=== PATIENT | female | born 1995 | race African-American/Black ===

== ENCOUNTER 2024-09-13 13:01 | Observation (INO) ==
[2024-09-13] MEDS ORDERED: 0.9 % SODIUM CHLORIDE 1000 ML 1,000 ML IV ONE (13:18)
[2024-09-13] MEDS ORDERED: CEFTRIAXONE SODIUM 2 GM VIAL ONE (13:19)
[2024-09-13] MEDS ORDERED: 0.9 % SODIUM CHLORIDE MB+ 100 ML IV ONE (13:19)
[2024-09-13] MEDS: KETOROLAC 30 MG/ML INJ VIAL IVP ONE (13:21)
[2024-09-13] MEDS: 0.9 % SODIUM CHLORIDE 1000 ML 1,000 ML IV ONE (13:22)
[2024-09-13] MEDS: CEFTRIAXONE SODIUM 1 GM in 0.9 % SODIUM CHLORIDE 100ML 100 ML IV SCH (13:23)
[2024-09-13 13:25] LABS: Basophils #(Absolute) Auto 0.1 (0.0-0.1); Eosinophils#(Absolute)Auto 0.1 (0.0-0.2); Monocytes #(Absolute)- Auto 1.2 (1.1-3.1)
[2024-09-13 13:26] LABS: Basophils%(Percent) Auto 0.5 (0.1-0.85); Eosinophils%(Percent) Auto 0.2 % (0.4-2.8); Granulocytes % - Auto 87.8 % (47.8-71.3); Granulocytes#(Absolute)- Auto 21.9 (2.3-6.0); Hematocrit 46.4 % (35.9-46.7); Mean Corpuscular Volume 85.4 fl (81.0-93.7); Monocytes %(Percent)- Auto 4.7 % (3.6-9.8); Platelet Count 317 K/uL (152-353)
--- NOTE | 2024-09-13 13:27 | Emergency Department Note ---
HPI - Dental/Oral General Chief complaint: Dental/Oral Stated complaint: SORE THROAT Source: patient Mode of arrival: walk-in Limitations: no limitations Related Data Allergies Allergy/AdvReac Type Severity Reaction Status Date / Time No Known Drug Allergies Allergy Verified 09/13/24 13:16 [facility] Medical History (Updated 09/13/24 @ 13:17 by Rosa Davison RN) Patient denies medical problems Social History Smoking status: current every day smoker Within the past year, how often did you have a drink containing alcohol: monthly or less Within the past year, how many standard drinks containing alcohol did you have on a typical day: 1 or 2 Within the past year, how often did you have six or more drinks on one occasion: never Total score: 0 Score interpretation: A score less than 3 is consistent with normal alcohol consumption. Exam Constitutional: Vital Signs - 24 hr 09/13/24 13:10 Temperature 99.6 F Pulse Rate 120 H Respiratory Rate 16 Blood Pressure 178/122 Pulse Oximetry 98 Oxygen Delivery Me thod Room Air Course Vital Signs Vital signs: Vital Signs Temperature 99.6 F 09/13/24 13:10 Pulse Rate 120 H 09/13/24 13:10 Respiratory Rate 16 09/13/24 13:10 Blood Pressure 178/122 09/13/24 13:10 Pulse Oximetry 98 09/13/24 13:10 Oxygen Delivery Method Room Air 09/13/24 13:10 Temperature 99.6 F 09/13/24 13:10 Pulse Rate 120 H 09/13/24 13:10 Respiratory Rate 16 09/13/24 13:10 Blood Pressure 178/122 09/13/24 13:10 Pulse Oximetry 98 09/13/24 13:10 Oxygen Delivery Method Room Air 09/13/24 13:10 MDM - Dental/Oral MDM Narrative Medical decision making narrative: Patient difficulty for the last 24 hours fever brother has had strep which she seen appear couple hours ago mom is laying on the couch sick at home with the same symptoms Strep pharyngitis, viral pharyngitis, shingles, sinusitis, rhinitis Differential Diagnosis Differential diagnosis: Likely dental caries, toothache, dental abscess, fracture of tooth, aphthous ulcer and other (Strep pharyngitis, viral pharyngitis, shingles, sinusitis, rhinitis) Medical Records Attestation: I reviewed the patient's medical records. Lab Data Attestation: I reviewed the patient's lab results. Labs: Lab Results 09/13/24 Range/Units 13:15 WBC 25.0 H* (4.3-9.3) K/uL RBC 5.4 (4.00-5.50) M/uL Hgb 15.1 (12.5-15.8) gm/dL Hct 46.4 (35.9-46.7) % MCV 85.4 (81.0-93.7) fl MCH 27.9 (27.6-32.2) pg MCHC 32.6 L (33.1-35.3) g/dl RDW 15.3 H (11.4-14.2) % Plt Count 317 (152-353) K/uL MPV 8.1 (6.9-10.8) fl Gran % 87.8 H (47.8-71.3) % Lymph % (Auto) 6.8 L (20.0-43.0) % [place] % (Auto) 4.7 (3.6-9.8) % Eos % (Auto) 0.2 L (0.4-2.8) % Baso % (Auto) 0.5 (0.1-0.85) Lymph # (Auto) 1.7 (1.1-3.1) [place] # (Auto) 1.2 (1.1-3.1) Eos # (Auto) 0.1 (0.0-0.2) Baso # (Auto) 0.1 (0.0-0.1) Absolute Gran (auto) 21.9 H (2.3-6.0) Sodium 139 (136-145) mmol/L Potassium 3.2 L (3.6-5.2) mmol/L Chloride 103.0 (98-107) mmol/L Carbon Dioxide 22 (21-32) mmol/L Anion Gap 14.0 (4-14) mEq/L BUN 6 L (7-18) mg/dL Creatinine 0.9 (0.6-1.3) mg/dL Estimated GFR 89.3 (>59.9) Glucose 132 H (70-110) mg/dL Calcium 8.5 (8.5-10.1) mg/dL Total Bilirubin 0.30 (0.0-1.0) mg/dL AST 12 L (15-37) U/L ALT 18 L (30-65) U/L Alkaline Phosphatase 90 (50-136) U/L Total Protein 7.9 (6.4-8.2) g/dL Albumin 3.4 (3.4-5.0) g/dL Streptococcus Screen Positve (Negative) ECG Data Attestation: I have reviewed the pertinent ECG results. Prior ECG tracings: available for review Interpretation: EKG-sinus rhythm, rate 84, RR 712, CO 141 Discharge Plan Discharge Patient Disposition: Admitted As Observation Condition: Improved Clinical Impression: Strep pharyngitis, Anorexia, Basophilic leukocytosis, Acute dehydration, Hypokalemia, Hypertension Time of Disposition: 15:03
[2024-09-13 13:38] LABS: Potassium 3.2 mmol/L (3.6-5.2)
[2024-09-13] MEDS ORDERED: cloNIDine HCL 0.1 MG TABLET PO ONE (14:02)
[2024-09-13] MEDS: cloNIDine HCL 0.1 MG TABLET PO ONE (14:02)
[2024-09-13] MEDS ORDERED: ONDANSETRON HCL/PF 4 MG/2 ML VIAL INJ PRN (15:40)
[2024-09-13] MEDS ORDERED: ACETAMINOPHEN 1000 MG/100 ML 750 MG/75 ML IV.SOLN IV PRN (15:40)
[2024-09-13] MEDS: POTASSIUM CHLORIDE IN WATER 10 MEQ/100 ML PIGGYBACK IV ONE (15:44)
[2024-09-13] MEDS ORDERED: POTASSIUM CHLORIDE IN WATER 10 MEQ/100 ML PIGGYBACK IV ONE (15:44)
--- NOTE | 2024-09-13 16:18 | History & Physical Report ---
H&P: HPI History of Present Illness Chief complaint: LEUKOCYTOSIS, STREP PHARYNGITIS, HYPERTENSION URGE Narrative: Ms. Hooker was admitted on 09/13/24 from the Ed presenting the sore throat. Patient tested postive for strep. Family contacts are sick as well. She has been having unknown tmax at home. WBC was 25. Patient was started on Rocephin in the ED. BP is also elevated only hx is asthma. Review of Systems Status of ROS 10 or more systems reviewed and unremark able except as noted in history and below Ears, nose, mouth, and throat Reports: throat pain and throat swelling [facility] Medical History (Updated 09/13/24 @ 16:22 by Lam Dietrich NP) Active asthma Strep pharyngitis Patient denies medical problems Social History Smoking status: current every day smoker Within the past year, how often did you have a drink containing alcohol: monthly or less Within the past year, how many standard drinks containing alcohol did you have on a typical day: 1 or 2 Within the past year, how often did you have six or more drinks on one occasion: never Total score: 0 Score interpretation: A score less than 3 is consistent with normal alcohol consumption. Meds Home Medications and Allergies Allergies Allergy/AdvReac Type Severity Reaction Status Date / Time No Known Drug Allergies Allergy Verified 09/13/24 13:16 Exam Constitutional: normal general appearance Vital Signs - 24 hr 09/13/24 13:10 Temperature 99.6 F Pulse Rate 120 H Respiratory Rate 16 Blood Pressure 178/122 Pulse Oximetry 98 Oxygen Delivery Me thod Room Air HENMT: normocephalic Eyes: PERRL and EOMs intact bilaterally Neck/C-Spine: visual inspection normal and trachea midline Lymph: no lymphadenopathy noted Chest: inspection of chest normal and palpation of chest normal Respiratory: breath sounds equal bilaterally and normal respiratory effort Cardiovascular: normal heart rate noted and regular rhythm noted Gastrointestinal: abdomen normal to inspection and abdomen soft to palpation Genitourinary: no CVA tenderness and bladder normal to palpation Back/Pelvis: spine normal to inspection and no thoracic spine tenderness Extremities: normal to inspection and normal to palpation Neurology: nurse emergency II-XII intact and no movement abnormality noted Psychiatry: Mental Status Exam documented in the separate MSE mental status grossly normal Skin: skin color normal and no rash Assessment and Plan Assessment and Plan (1) Strep pharyngitis: Code(s): J02.0 - Streptococcal pharyngitis Plan Rocephin 1gm IV daily Toradol 30mg IV q8hrs prn Results Labs Labs: CBC 09/13/24 Range/Units 13:15 WBC 25.0 H* (4.3-9.3) K/uL RBC 5.4 (4.00-5.50) M/uL Hgb 15.1 (12.5-15.8) gm/dL Hct 46.4 (35.9-46.7) % Plt Count 317 (152-353) K/uL Gran % 87.8 H (47.8-71.3) % Lymph % (Auto) 6.8 L (20.0-43.0) % [place] % (Auto) 4.7 (3.6-9.8) % Eos % (Auto) 0.2 L (0.4-2.8) % Baso % (Auto) 0.5 (0.1-0.85) Lymph # (Auto) 1.7 (1.1-3.1) [place] # (Auto) 1.2 (1.1-3.1) Eos # (Auto) 0.1 (0.0-0.2) Baso # (Auto) 0.1 (0.0-0.1) Absolute Gran (auto) 21.9 H (2.3-6.0) CMP 09/13/24 13:15 Sodium 139 Potassium 3.2 L Chloride 103.0 Carbon Dioxide 22 BUN 6 L Creatinine 0.9 Glucose 132 H Calcium 8.5 Liver Function 09/13/24 Range/Units 13:15 Total Bilirubin 0.30 (0.0-1.0) mg/dL AST 12 L (15-37) U/L ALT 18 L (30-65) U/L Alkaline Phosphatase 90 (50-136) U/L Albumin 3.4 (3.4-5.0) g/dL
[2024-09-13] MEDS: CEFTRIAXONE SODIUM 2 GM in 0.9 % SODIUM CHLORIDE 100ML 100 ML IV ONE (16:25)
[2024-09-13] MEDS: PANTOPRAZOLE SODIUM 40 MG TABLET.DR PO SCH (16:27)
[2024-09-13] MEDS: 0.9 % SODIUM CHLORIDE 1000 ML 1,000 ML IV SCH (16:27)
[2024-09-13] MEDS ORDERED: cloNIDine HCL 0.1 MG TABLET PO SCH (17:30)
[2024-09-13] MEDS: cloNIDine HCL 0.1 MG TABLET PO SCH (17:54)
[2024-09-13] MEDS: KETOROLAC 30 MG/ML INJ VIAL IVP PRN (19:49)
[2024-09-13] MEDS: METHYLPREDNISOLONE SOD SUCC/PF 40 MG/ML VIAL INJ SCH (20:55)
[2024-09-13] MEDS: FAMOTIDINE/PF 20 MG/2 ML VIAL IV SCH (20:55)
[2024-09-14] MEDS: CEFTRIAXONE SODIUM 1 GM in 0.9 % SODIUM CHLORIDE MB+ 50 ML IV SCH (03:12)
[2024-09-14 06:09] LABS: Basophils #(Absolute) Auto 0.1 (0.0-0.1)
[2024-09-14 06:12] LABS: Basophils%(Percent) Auto 0.3 (0.1-0.85); Granulocytes % - Auto 93.3 % (47.8-71.3); Granulocytes#(Absolute)- Auto 21.3 (2.3-6.0); Hematocrit 42.1 % (35.9-46.7); Mean Corpuscular Volume 85.6 fl (81.0-93.7); Monocytes #(Absolute)- Auto 0.3 (1.1-3.1); Monocytes %(Percent)- Auto 1.2 % (3.6-9.8); Platelet Count 302 K/uL (152-353)
[2024-09-14 06:28] LABS: White Blood Count 22.8 K/uL (4.3-9.3)
[2024-09-14 08:32] VITALS: BP 136/89; PULSE 73; RESP 17; TEMP 97.5
--- NOTE | 2024-09-14 14:27 | Discharge Summary ---
DS: Providers Provider Date of admission: 09/13/24 15:53 Primary care physician: NO PCP Provider DS: Diagnosis Discharge Diagnosis (1) Strep pharyngitis: (2) Leukocytosis: (3) Tonsillar hypertrophy: (4) Hypertension: (5) Hypertensive urgency, malignant: (6) Leukocytosis: (7) Tonsillar hypertrophy: (8) Hypertension: DS: Summary Time Spent with Patient Time attestation: Total time spent providing and/or coordinating discharge services: Exam Constitutional: Vital Signs - 24 hr 09/13/24 14:30 09/13/24 16:00 09/13/24 16:25 Temperature 99.6 F Pulse Rate 93 H 74 74 Pulse Rate [Brachi al] Respiratory Rate 16 16 16 Blood Pressure 138/87 133/93 133/93 Blood Pressure [Le ft Arm] Pulse Oximetry 98 98 98 Oxygen Delivery Me thod Room Air Room Air 09/13/24 17:54 09/13/24 20:02 09/13/24 23:53 Temperature 100.4 F H 99.4 F Pulse Rate Pulse Rate [Brachi al] 73 86 Respiratory Rate 15 16 Blood Pressure 160/120 Blood Pressure [Le ft Arm] 142/86 136/83 Pulse Oximetry 98 98 Oxygen Delivery Me thod Room Air Room Air 09/14/24 08:00 Temperature 97.5 F L Pulse Rate Pulse Rate [Brachi al] 73 Respiratory Rate 17 Blood Pressure Blood Pressure [Le ft Arm] 136/89 Pulse Oximetry 97 Oxygen Delivery Me thod Room Air DS: Data Data Completed and Pending Labs on day of discharge: Labs from last 24 hours 09/14/24 05:45 WBC 22.8 H* RBC 4.9 Hgb 13.7 Hct 42.1 MCV 85.6 MCH 27.9 MCHC 32.6 L RDW 15.0 H Plt Count 302 MPV 8.5 Gran % 93.3 H Lymph % (Auto) 5.2 L [place] % (Auto) 1.2 L Eos % (Auto) 0.0 L Baso % (Auto) 0.3 Lymph # (Auto) 1.2 [place] # (Auto) 0.3 L Eos # (Auto) 0.0 Baso # (Auto) 0.1 Absolute Gran (auto) 21.3 H Sodium 138 Potassium 4.0 Chloride 105.0 Carbon Dioxide 22 Anion Gap 11.0 BUN 7 Creatinine 0.7 Estimated GFR 120.7 Glucose 136 H Calcium 8.1 L Phosphorus 3.3 Magnesium 1.9 Total Bilirubin 0.20 AST 13 L ALT 13 L Alkaline Phosphatase 84 Total Protein 7.3 Albumin 3.0 L Discharge Plan Discharge Disposition: Home, Self-Care Condition: Improved Discharge Medications: New cephalexin 500 mg capsule 500 mg PO QID Qty: 20 0RF losartan-hydrochlorothiazide 50-12.5 mg tablet 1 tab PO DAILY Qty: 30 0RF Discharge Orders: Discharge Order (Routine); Ordered 09/14/24 Ordered By: Josiane Garg Activity: increase activity as tolerated Diet: advance to your usual diet Activity Restrictions/Additional Instructions: Continue good handwashing avoid contacts and wear mask has been around people See PCP in 3 days or FRANKI if signs of fever not controlled with ibuprofen and Tylenol alternating every 4 hours after hospital discharge increase water in her diet If fevers or diffiuclty swallowing or any concerns follow up in the ER franki Forms: Portal/Health Info Access Inst Follow-Ups: Provider,NO PCP [Primary Care Provider, Adminstration]
[2024-09-14] MEDS: CEFTRIAXONE SODIUM 1 GM in 0.9 % SODIUM CHLORIDE MB+ 50 ML IV ONE (14:49)
[2024-09-14] MEDS ORDERED: CEFTRIAXONE SODIUM 1 GM in 0.9 % SODIUM CHLORIDE MB+ 50 ML IV ONE ×2 (15:00→15:30)
== END 2024-09-14 16:37 | disposition home or self-care (01) ==
LOC: ED 13:01 → MS 13:01
PROVIDERS: ADMIT Nurse Practitioner; ATTEND Nurse Practitioner